=== PATIENT | male | born 1985 ===

== ENCOUNTER 2018-12-15 08:30 | Inpatient (IN) | payer OTHER | END 2018-12-16 18:38 | LOC: PAS 08:30 → ORTHO 4S 13:51 | PROC: 0SRC0M9 Replacement of Right Knee Joint with Lateral Unicondylar Synthetic Substitute, Cemented, Open Approach (ICD-10-PCS; principal; 2018-12-15 10:12) | DX: M17.11 Unilateral primary osteoarthritis, right knee (principal); D62 Acute posthemorrhagic anemia ==